=== PATIENT | male | born 1945 ===

== ENCOUNTER 2021-06-10 06:54 | Emergency (ER) | payer OTHER ==
[~2021-06-10] VITALS: Ht 180.3 cm; Wt 93.0 kg
[2021-06-10 07:45] VITALS: BP 134/70
== END 2021-06-10 09:03 | disposition home or self-care (01) ==
LOC: ER 06:54
DX: M25.461 Effusion, right knee (principal); M17.11 Unilateral primary osteoarthritis, right knee
CPT/HCPCS: 29505; 73562